=== PATIENT | male | born 1990 | race Caucasian/White ===

== ENCOUNTER 2017-02-03 06:47 | Day surgery (SDC) | payer OTHER ==
[2017-02-03 07:07] VITALS: BMI 22.8
[2017-02-03 07:18] VITALS: RESP 20
--- NOTE | 2017-02-03 08:33 | CP.SDSHP ---
Same Day Surgery H & P - History Proposed Procedure: egd Pre-Op Diagnosis: abdominal pain - Allergies Allergies: Allergies No Known Allergies Allergy (Verified 02/03/17 07:07) - Physical Exam General Appearance: NAD Vital Signs: Vital Signs 02/03/17 07:08 Temperature 98.7 F Pulse Rate 80 Respiratory 20 Rate Blood Pressure 155/80 H O2 Sat by Pulse 100 Oximetry Mental Status: Alert & Oriented x3 Neuro: WNL Heart: WNL Lungs: WNL GI: WNL - {Optional Preform as Required} Abdomen: WNL - Impression Pt. Evaluated Today:Candidate for Anesthesia & Procedure: Yes - Date & Time Date: 02/03/17 Time: 08:33 Short Stay Discharge - Short Stay Discharge Admitting Diagnosis/Reason for Visit: ABDOMINAL PAIN Disposition: HOME/ ROUTINE
[2017-02-03] MEDS ORDERED: Propofol 10 mg/ml Inj (20 ML) ONE (08:38)
[2017-02-03 09:29] VITALS: TEMP 98; O2SAT 99
[2017-02-03 09:49] VITALS: BP 123/78; PULSE 66
== END 2017-02-03 09:30 | disposition home or self-care (01) ==
LOC: C.ENDO 06:47
PROVIDERS: ATTEND Internal Medicine Gastroenterology
DX: K29.50 Unspecified chronic gastritis without bleeding (principal); K29.80 Duodenitis without bleeding
CPT/HCPCS: 43239; 88305; J2704